=== PATIENT | male | born 1950 | race Two or more races ===

== ENCOUNTER 2018-01-10 16:15 | Inpatient (IN) | payer MEDICARE, MEDICAID ==
[~2018-01-10] VITALS: Ht 167.6 cm; Wt 105.2 kg
[2018-01-10] MEDS ORDERED: AMLO5TAB88 PO (16:35)
[2018-01-10] MEDS ORDERED: GABA-529 PO (16:35)
[2018-01-10] MEDS ORDERED: ALBUTEROL (0.083%) 2.5MG/3ML NEB HHN STA ×2 (17:45→20:17)
[2018-01-10] MEDS ORDERED: ASPIRIN 325MG EC TABLET PO ONE (17:45)
[2018-01-10 19:17] LABS: CLARITY URINE CLEAR (CLEAR); COLOR URINE YELLOW (YELLOW); KETONES URINE NEGATIVE (NEGATIVE); LEUKOCYTE ESTERASE URINE NEGATIVE (NEGATIVE); NITRITE URINE NEGATIVE (NEGATIVE); OCCULT BLOOD URINE 2+ (NEGATIVE); PROTEIN URINE 4+ (NEGATIVE); SPECIFIC GRAVITY URINE 1.022 (1.005-1.030); UROBILINOGEN URINE 0.2 E.U./dL (0.2-1.0)
[2018-01-10] MEDS ORDERED: IPRATROPIUM BROMIDE (0.02%) 0.5MG/2.5ML NEB HHN STA (20:17)
[2018-01-10 20:18] LABS: BASOPHILS % 0.6 % (0.0-2.0); EOSINOPHILS % 1.9 % (0.0-5.0); HEMATOCRIT. 23.8 % (42.0-52.0); HEMOGLOBIN. 7.8 g/dL (14.0-18.0); LYMPHOCYTES % 9.5 % (20.0-50.0); MEAN CORPUSCULAR HEMOGLOBIN 35.5 pg (28.0-32.0); MEAN CORPUSCULAR VOLUME 108.6 fL (80.0-94.0); MEAN PLATELET VOLUME 7.3 fl (7.4-10.4); MONOCYTES % 10.2 % (2.0-8.0); NEUTROPHILS % 77.8 % (40.0-76.0); PLATELET 263 x1000/uL (130-400); RED BLOOD CELL COUNT 2.19 mill/uL (4.7-6.1); RED CELL DISTRIBUTION WIDTH 17.9 % (11.6-14.6)
[2018-01-10 20:26] LABS: INR 1.1; PARTIAL THROMBOPLASTIN TIME 31.8 sec (23.4-31.0); PROTHROMBIN TIME 10.7 sec (9.1-11.1)
[2018-01-10] MEDS ORDERED: MAGNESIUM 2 G PREMIX 50 ML IV ONE (20:30)
[2018-01-10 20:38] LABS: CHLORIDE 109 mEq/L (98-107)
[2018-01-10] MEDS ORDERED: METHYLPREDNISOLONE SOD SUCC 125 MG/2 ML VIAL IV ONE (21:30)
[2018-01-10 22:35] LABS: BG BASE EXCESS -5.6 mmol/L (-2.0-2.0); BG CARBOXYHEMOGLOBIN 0.3 % (0.5-1.5); BG DEOXYHEMOGLOBIN 9.4 % (0.0-5.0); BG FRACTION INSPIRED OXYGEN 21; BG METHEMOGLOBIN 0.6 % (0.0-1.5); BG OXYGEN SATURATION 90.5 % (92.0-98.5); BG OXYHEMOGLOBIN 89.7 % (94.0-97.0); BG PCO2 33.7 mmHg (35.0-45.0); BG PH 7.369 (7.350-7.450); BG PO2 61.4 mmHg (75.0-100.0); BG SAMPLE SITE RIGHT RADIAL; BG TOTAL HEMOGLOBIN 9.9 g/dL (12.0-18.0); BG VENT MODE VENT - A/C
[2018-01-11] MEDS: BLOOD SUGAR DIAGNOSTIC STRIP TEST SCH ×2 (00:06→17:20)
[2018-01-11 05:24] LABS: TOTAL IRON BINDING CAPACITY 224 ug/dL (250-450)
[2018-01-11 05:51] LABS: FOLIC ACID (FOLATE) SERUM 6.1 ng/mL (>5.38)
[2018-01-11] MEDS ORDERED: DOCUSATE SODIUM 100MG CAPSULE PO PRN (12:00)
[2018-01-11] MEDS ORDERED: CLONIDINE 0.1MG TABLET PO PRN (12:00)
[2018-01-11] MEDS ORDERED: BUDESONIDE 0.5MG/2ML NEB HHN SCH (12:00)
[2018-01-11] MEDS ORDERED: GUAIFENESIN 200MG/10ML SUGAR FREE UDC PO PRN (12:00)
[2018-01-11] MEDS ORDERED: ACETAMINOPHEN 325MG TABLET PO PRN (12:00)
[2018-01-11] MEDS: PREDNISONE 20MG TABLET PO SCH (13:42)
[2018-01-11] MEDS ORDERED: DEXTROSE 50% WATER 50ML SYRINGE IV PRN (14:30)
[2018-01-11 14:36] VITALS: BP 198/96
[2018-01-11] MEDS: BUDESONIDE 0.5MG/2ML NEB HHN SCH (15:13)
[2018-01-11] MEDS: IPRATROPIUM/ALBUTEROL 0.5-3(2.5)MG/3ML NEB INH PRN (15:13)
[2018-01-11 16:00] VITALS: BP 160/79
[2018-01-11] MEDS ORDERED: BENZONATATE 100MG CAPSULE PO PRN (16:45)
[2018-01-11] MEDS: INSULIN LISPRO 100 UNITS/ML SUBCUT SCH ×2 (17:50→23:04)
[2018-01-11] MEDS: LORATADINE 10MG TABLET PO SCH (19:19)
[2018-01-11 20:00] VITALS: BP 166/70
[2018-01-11] MEDS ORDERED: EPOETIN ALFA 10000UNITS/ML VIAL SUBCUT NR (21:00)
[2018-01-11] MEDS: FLUTICASONE PROPIONATE 50MCG/SPRAY BOTTLE BOTHNSTRLS SCH (22:59)
[2018-01-12] VITALS: BP 155/72
[2018-01-12 04:19] VITALS: BP 134/65
[2018-01-12] MEDS: BLOOD SUGAR DIAGNOSTIC STRIP TEST SCH ×4 (07:20→20:32)
[2018-01-12] MEDS: INSULIN LISPRO 100 UNITS/ML SUBCUT SCH ×4 (07:50→20:32)
[2018-01-12] MEDS: BUDESONIDE 0.5MG/2ML NEB HHN SCH (07:54)
[2018-01-12] MEDS: FLUTICASONE PROPIONATE 50MCG/SPRAY BOTTLE BOTHNSTRLS SCH ×2 (09:42→20:32)
[2018-01-12] MEDS: LORATADINE 10MG TABLET PO SCH (09:42)
[2018-01-12] MEDS: FAMOTIDINE 20MG/2ML VIAL IV SCH (09:42)
[2018-01-12] MEDS: AMLODIPINE 10MG TABLET PO SCH (09:49)
[2018-01-12] MEDS: PREDNISONE 20MG TABLET PO SCH (09:50)
[2018-01-12 10:20] LABS: BASOPHILS % 0.5 % (0.0-2.0); EOSINOPHILS % 0.1 % (0.0-5.0); HEMATOCRIT. 22.2 % (42.0-52.0); HEMOGLOBIN. 7.4 g/dL (14.0-18.0); LYMPHOCYTES % 10.5 % (20.0-50.0); MEAN CORPUSCULAR HEMOGLOBIN 35.5 pg (28.0-32.0); MEAN CORPUSCULAR VOLUME 107.5 fL (80.0-94.0); MEAN PLATELET VOLUME 8.6 fl (7.4-10.4); MONOCYTES % 6.9 % (2.0-8.0); PLATELET 272 x1000/uL (130-400); RED BLOOD CELL COUNT 2.07 mill/uL (4.7-6.1)
[2018-01-12 12:00] VITALS: BP 131/68
[2018-01-12 16:00] VITALS: BP 131/68
[2018-01-12 20:00] VITALS: BP 130/62
[2018-01-12 22:02] LABS: *AMPHETAMINES SCREEN URINE NEGATIVE (NEGATIVE); *BARBITURATES SCREEN URINE NEGATIVE (NEGATIVE); *BENZODIAZEPINES SCREEN URINE NEGATIVE (NEGATIVE); *COCAINE SCREEN URINE NEGATIVE (NEGATIVE)
[2018-01-12 22:03] LABS: CANNABINOID URINE SCREEN NEGATIVE (NEGATIVE); METHADONE URINE SCREEN NEGATIVE (NEGATIVE); OPIATES URINE SCREEN NEGATIVE (NEGATIVE); PHENCYCLIDINE URINE SCREEN NEGATIVE (NEGATIVE)
[2018-01-13] VITALS (11 sets, daily range): BP systolic 118–159; BP diastolic 69–93
[2018-01-13] MEDS: BLOOD SUGAR DIAGNOSTIC STRIP TEST SCH ×4 (06:21→20:28)
[2018-01-13] MEDS: INSULIN LISPRO 100 UNITS/ML SUBCUT SCH ×4 (07:32→20:28)
[2018-01-13] MEDS: FLUTICASONE PROPIONATE 50MCG/SPRAY BOTTLE BOTHNSTRLS SCH ×2 (08:23→20:22)
[2018-01-13] MEDS: LORATADINE 10MG TABLET PO SCH (08:23)
[2018-01-13] MEDS: PREDNISONE 20MG TABLET PO SCH (08:23)
[2018-01-13 08:31] LABS: BASOPHILS % 0.5 % (0.0-2.0); EOSINOPHILS % 1.1 % (0.0-5.0); HEMATOCRIT. 23.1 % (42.0-52.0); HEMOGLOBIN. 7.6 g/dL (14.0-18.0); LYMPHOCYTES % 19.9 % (20.0-50.0); MEAN CORPUSCULAR HEMOGLOBIN 35.5 pg (28.0-32.0); MEAN CORPUSCULAR VOLUME 107.4 fL (80.0-94.0); MEAN PLATELET VOLUME 7.8 fl (7.4-10.4); MONOCYTES % 9.5 % (2.0-8.0); PLATELET 272 x1000/uL (130-400); RED BLOOD CELL COUNT 2.15 mill/uL (4.7-6.1); RED CELL DISTRIBUTION WIDTH 17.4 % (11.6-14.6)
[2018-01-13] MEDS: BUDESONIDE 0.5MG/2ML NEB HHN SCH ×3 (08:36→21:22)
[2018-01-13] MEDS: AMLODIPINE 10MG TABLET PO SCH (09:00)
[2018-01-13] MEDS: FAMOTIDINE 20MG/2ML VIAL IV SCH (09:36)
[2018-01-13] MEDS ORDERED: MONTELUKAST SODIUM 10MG TABLET PO SCH (17:00)
[2018-01-13] MEDS: AZITHROMYCIN 500 MG TABLET PO SCH (17:26)
[2018-01-13] MEDS ORDERED: LORATADINE 10MG TABLET PO SCH (21:00)
[2018-01-14 00:01] VITALS: BP 136/67
[2018-01-14 04:00] VITALS: BP 142/60
[2018-01-14] MEDS: BLOOD SUGAR DIAGNOSTIC STRIP TEST SCH ×2 (06:24→12:20)
[2018-01-14] MEDS: INSULIN LISPRO 100 UNITS/ML SUBCUT SCH ×2 (07:50→12:50)
[2018-01-14 08:00] VITALS: BP 147/70
[2018-01-14] MEDS ORDERED: FAMOTIDINE 20MG/2ML VIAL IV SCH (09:00)
[2018-01-14] MEDS: BUDESONIDE 0.5MG/2ML NEB HHN SCH (09:43)
[2018-01-14] MEDS: IPRATROPIUM/ALBUTEROL 0.5-3(2.5)MG/3ML NEB INH PRN (09:44)
[2018-01-14] MEDS: AMLODIPINE 10MG TABLET PO SCH (10:11)
[2018-01-14] MEDS: PREDNISONE 20MG TABLET PO SCH (10:11)
[2018-01-14] MEDS: AZITHROMYCIN 500 MG TABLET PO SCH (10:11)
[2018-01-14 12:16] VITALS: BP 147/80
[2018-01-14] MEDS: FLUTICASONE PROPIONATE 50MCG/SPRAY BOTTLE BOTHNSTRLS SCH (13:19)
[2018-01-14] MEDS ORDERED: BUDE90AE INH (16:06)
[2018-01-14] MEDS ORDERED: FAMO-134 MT (16:06)
[2018-01-14] MEDS ORDERED: FLUT9.9S BOTHNSTRLS (16:06)
[2018-01-14] MEDS ORDERED: LORA10TA7 PO (16:06)
== END 2018-01-14 15:25 | disposition home or self-care (01) | DRG 189 ==
LOC: ER 16:15 → 6WST 22:09 → EDBEDREQTM 22:20 → EDBEDREQ 22:20 → ENRESERV 01-11 11:01
PROVIDERS: ADMIT Emergency Medicine; ATTEND Emergency Medicine
PROC: 5A1D70Z Performance of Urinary Filtration, Intermittent, Less than 6 Hours Per Day (ICD-10-PCS; 2018-01-11)
PROC: 5A1D70Z Performance of Urinary Filtration, Intermittent, Less than 6 Hours Per Day (ICD-10-PCS; 2018-01-12)
PROC: 30233N1 Transfusion of Nonautologous Red Blood Cells into Peripheral Vein, Percutaneous Approach (ICD-10-PCS; principal; 2018-01-13)
DX: J96.01 Acute respiratory failure with hypoxia (principal); N18.6 End stage renal disease; E43 Unspecified severe protein-calorie malnutrition; I12.0 Hypertensive chronic kidney disease with stage 5 chronic kidney disease or end stage renal disease; J20.8 Acute bronchitis due to other specified organisms; D63.8 Anemia in other chronic diseases classified elsewhere; J30.9 Allergic rhinitis, unspecified; D53.9 Nutritional anemia, unspecified; Z99.2 Dependence on renal dialysis; E66.9 Obesity, unspecified; E11.22 Type 2 diabetes mellitus with diabetic chronic kidney disease; E03.9 Hypothyroidism, unspecified; E87.70 Fluid overload, unspecified; E61.1 Iron deficiency; Z68.37 Body mass index [BMI] 37.0-37.9, adult; Z79.899 Other long term (current) drug therapy; Z85.46 Personal history of malignant neoplasm of prostate
CPT/HCPCS: 36415; 36600; 71045; 78582; 80048; 80305; 82270; 82375; 82607; 82746; 82805; 82962; 83540; 83550; 83735; 83880; 84100; 84484; 86850; 86900; 86920; 93005; 93306; 96365; 96375; 99285; A9558; J0885; J1815; J2930; J3475; J3490; J7030; J7512; J7611; J7620; J7626; P9016

== ENCOUNTER → 2018-07-19 | Outpatient (CLI) | payer MEDICARE, MEDICAID ==
[~2018-07-19] MED LIST: AMLO5TAB88 PO; BUDE90AE INH; FAMO-134 MT; FLUT9.9S BOTHNSTRLS; GABA-529 PO; IOHEXOL-300 100 ML BOTTLE ONE; LORA10TA7 PO
== END | disposition home or self-care (01) ==
LOC: CT 09:37
PROVIDERS: ATTEND Internal Medicine Nephrology
DX: K57.90 Diverticulosis of intestine, part unspecified, without perforation or abscess without bleeding (principal); K42.9 Umbilical hernia without obstruction or gangrene
CPT/HCPCS: 74178; Q9967

== ENCOUNTER 2019-04-18 16:40 | Emergency (ER) | payer MEDICARE, MEDICAID ==
[~2019-04-18] VITALS: Ht 165.1 cm; Wt 102.0 kg
[~2019-04-18 16:40] MED LIST changes: -IOHEXOL-300 100 ML BOTTLE ONE
[2019-04-18 21:16] LABS: HEMATOCRIT. 23.2 % (42.0-52.0); HEMOGLOBIN. 7.4 g/dL (14.0-18.0); MEAN CORPUSCULAR HEMOGLOBIN 35.1 pg (28.0-32.0); MEAN CORPUSCULAR VOLUME 109.5 fL (80.0-94.0); MEAN PLATELET VOLUME 7.3 fl (7.4-10.4); PLATELET 312 x1000/uL (130-400); RED BLOOD CELL COUNT 2.12 mill/uL (4.7-6.1); RED CELL DISTRIBUTION WIDTH 25.6 % (11.6-14.6)
[2019-04-18 21:18] LABS: CHLORIDE 110 mEq/L (98-107)
[2019-04-18 21:21] LABS: INR 1.1; PARTIAL THROMBOPLASTIN TIME 28.6 sec (23.4-31.0); PROTHROMBIN TIME 10.8 sec (9.6-11.0)
[2019-04-18 21:51] LABS: NUCLEATED RED BLOOD CELLS 5 /100 WBC; PLATELET ESTIMATE NORMAL
[2019-04-18 22:43] VITALS: BP 135/55
== END 2019-04-18 22:44 | disposition home or self-care (01) ==
LOC: ER 16:40
DX: D64.9 Anemia, unspecified (principal); N18.6 End stage renal disease; E11.9 Type 2 diabetes mellitus without complications; I10 Essential (primary) hypertension; Z79.899 Other long term (current) drug therapy
CPT/HCPCS: 36415; 80053; 85025; 86850; 86900; 93005; 99284

== ENCOUNTER 2019-04-27 18:09 | Emergency (ER) | payer MEDICARE, MEDICAID ==
[~2019-04-27] VITALS: Ht 165.1 cm; Wt 104.0 kg
[2019-04-28 00:25] LABS: CHLORIDE 109 mEq/L (98-107)
[2019-04-28 00:32] LABS: HEMOGLOBIN. 9.5 g/dL (14.0-18.0); LYMPHOCYTES % 25.1 % (20.0-50.0)
[2019-04-28 00:40] LABS: BASOPHILS % 1.5 % (0.0-2.0); EOSINOPHILS % 4.5 % (0.0-5.0); HEMATOCRIT. 28.6 % (42.0-52.0); MEAN CORPUSCULAR HEMOGLOBIN 36.5 pg (28.0-32.0); MEAN CORPUSCULAR VOLUME 110.2 fL (80.0-94.0); MEAN PLATELET VOLUME 7.9 fl (7.4-10.4); MONOCYTES % 12.8 % (2.0-8.0); NEUTROPHILS % 56.1 % (40.0-76.0); PLATELET 343 x1000/uL (130-400); RED CELL DISTRIBUTION WIDTH 25.2 % (11.6-14.6)
[2019-04-28 01:35] VITALS: BP 140/75
[2019-04-28 05:51] LABS: PLATELET ESTIMATE NORMAL
== END 2019-04-28 01:37 | disposition home or self-care (01) ==
LOC: ER 18:09
DX: D64.9 Anemia, unspecified (principal); G89.29 Other chronic pain; I12.0 Hypertensive chronic kidney disease with stage 5 chronic kidney disease or end stage renal disease; E11.22 Type 2 diabetes mellitus with diabetic chronic kidney disease; N18.6 End stage renal disease; Z99.2 Dependence on renal dialysis; Z98.890 Other specified postprocedural states; Z79.899 Other long term (current) drug therapy
CPT/HCPCS: 36415; 80053; 85025; 86850; 86900; 99283

== ENCOUNTER 2020-02-16 14:02 | Emergency (ER) | payer MEDICARE, MEDICAID ==
[~2020-02-16] VITALS: Ht 167.6 cm; Wt 82.0 kg
[2020-02-16 14:06] VITALS: BP 167/62
== END 2020-02-16 22:42 | disposition home or self-care (01) ==
LOC: ER 14:02 → EDBEDREQ 16:21 → EDBEDREQSVC 16:21 → CANRESERV 20:51 → ENRESERV 20:51 → ER 22:42 → CANBEDREQ 23:40
DX: D64.9 Anemia, unspecified (principal); E11.22 Type 2 diabetes mellitus with diabetic chronic kidney disease; I12.0 Hypertensive chronic kidney disease with stage 5 chronic kidney disease or end stage renal disease; N18.6 End stage renal disease; E87.8 Other disorders of electrolyte and fluid balance, not elsewhere classified; E87.70 Fluid overload, unspecified; Z79.899 Other long term (current) drug therapy
CPT/HCPCS: 93005; 99283